=== PATIENT | female | born 1970 | race Caucasian/White ===

== ENCOUNTER 2019-03-04 21:46 | Emergency (ER) | payer OTHER ==
[~2019-03-04] VITALS: Ht 175.3 cm; Wt 99.8 kg
[~2019-03-04 21:46] MED LIST: AMOX1TAB61 PO; OFLO5DRO EACHEYE
[2019-03-04 22:29] LABS: BILIRUBIN,URINE NEGATIVE (NEG); CLARITY,URINE CLEAR; COLOR,URINE YELLOW; NITRITE,URINE NEGATIVE (NEG); PH,URINE 5.5; PROTEIN,URINE NEGATIVE (NEG-TRACE); UROBILINOGEN,URINE 0.2 mg/dL (0.2 mg/dL)
[2019-03-04] MEDS ORDERED: IV NORMAL SALINE 1000ML BAG 1,000 ML IV ONE (22:30)
[2019-03-04] MEDS ORDERED: KETOROLAC 15 MG/ML VIAL. IV ONE (22:30)
[2019-03-04] MEDS ORDERED: ONDANSETRON PF 4 MG/2 ML VIAL. IV ONE (22:30)
[2019-03-04 22:35] LABS: BACTERIA,URINE FEW /HPF (0-FEW); SQUAMOUS EPITHELIAL CELL,UR MOD /LPF; WBC,URINE OCC /HPF (0-4)
[2019-03-04 22:55] LABS: BASO # 0.1 x10^3/uL (0.0-0.2); BASO % 1 % (0-3); EOS # 0.2 x10^3/uL (0.0-0.7); EOS % 3 % (0-3); HEMATOCRIT 38.7 % (36.0-47.0); HEMOGLOBIN 13.2 g/dL (12.0-15.5); LYMPH # 1.8 x10^3/uL (1.0-4.8); LYMPH % 28 % (24-48); MEAN CORPUSCULAR HEMOGLOBIN 30 pg (25-35); MEAN CORPUSCULAR HGB CONC 34 g/dL (31-37); MEAN CORPUSCULAR VOLUME 88 fL (79-100); MONO # 0.6 x10^3/uL (0.0-1.1); MONO % 9 % (0-9); NEUT % 59 % (31-73); PLATELET COUNT 304 x10^3/uL (140-400); RED BLOOD COUNT 4.41 x10^6/uL (3.50-5.40); RED CELL DISTRIBUTION WIDTH 13.3 % (11.5-14.5); WHITE BLOOD COUNT 6.7 x10^3/uL (4.0-11.0)
[2019-03-04 23:22] LABS: CALCIUM 8.7 mg/dL (8.5-10.1); CREATININE 0.6 mg/dL (0.6-1.0); GFR 106.7; POTASSIUM 3.6 mmol/L (3.5-5.1)
[2019-03-04 23:28] LABS: ALBUMIN 3.2 g/dL (3.4-5.0); ALBUMIN/GLOBULIN RATIO 1.1 (1.0-1.7); TOTAL BILIRUBIN 0.4 mg/dL (0.2-1.0); TOTAL PROTEIN 6.1 g/dL (6.4-8.2)
[2019-03-04] MEDS ORDERED: ONDA4TAB12 PO (23:48)
[2019-03-04 23:59] VITALS: BP 119/72
--- NOTE | 2019-03-05 00:02 | PHYS DOC ---
Past Medical History Past Medical History: Anemia Past Surgical History: Cholecystectomy, Hysterectomy Alcohol Use: Occasionally Drug Use: None Adult General Chief Complaint Chief Complaint: NAUSEA/VOMITING/DIARRHA HPI HPI Patient is a 48 year old F P/W CC OF nausea vomiting and diarrhea greater than 10 episodes of each also feels some right flank pain. Flank is dull and sharp at times feel similar prior kidney infection she was worried about that nonbloody emesis nonbloody diarrhea no recent travel no antibiotics no sick contacts that she knows of she she's been feeling a little dizzy. Review of Systems Review of Systems Constitutional: Eyes: Denies change in visual acuity, redness, or eye pain [] HENT: Denies nasal congestion or sore throat [] Respiratory: Denies cough or shortness of breath [] Negative for dysuria Neurologic: Denies headache, focal weakness or sensory changes [] Endocrine: Denies polyuria or polydipsia [] All other systems were reviewed and found to be within normal limits, except as documented in this note. Current Medications Current Medications Current Medications Medications (Trade) Dose Ordered Sig/Fiorella Start Time Stop Time Status Last Admin Dose Admin Ketorolac Tromethamine (Toradol 15mg Vial) 15 mg 1X ONCE 03/04/19 22:30 03/04/19 22:31 DC 03/04/19 22:56 15 MG Ondansetron HCl (Zofran) 4 mg 1X ONCE 03/04/19 22:30 03/04/19 22:31 DC 03/04/19 22:55 4 MG Sodium Chloride 1,000 ml @ 1,000 mls/hr 1X ONCE 03/04/19 22:30 03/04/19 23:29 DC 03/04/19 22:55 1,000 MLS/HR Allergies Allergies Allergies Coded Allergies Type Severity Reaction Last Updated Verified morphine Allergy Severe seizures 06/10/14 Yes Physical Exam Physical Exam Constitutional: Well developed, well nourished, no acute distress, non-toxic appearance. [] HENT: Normocephalic, atraumatic, bilateral external ears normal, oropharynx moist, no oral exudates, nose normal. [] Eyes: PERRLA, EOMI, conjunctiva normal, no discharge. [] Neck: Normal range of motion, no tenderness, supple, no stridor. [] Cardiovascular:Heart rate regular rhythm, no murmur [] Lungs & Thorax: Bilateral breath sounds clear to auscultation [] Abdomen: Bowel sounds normal, soft, no tenderness, no masses, no pulsatile masses. [] Skin: Warm, dry, no erythema, no rash. [] Back: Mild right CVA tenderness Extremities: No tenderness, no cyanosis, no clubbing, ROM intact, no edema. [] Neurologic: Alert and oriented X 3, normal motor function, normal sensory function, no focal deficits noted. [] Psychologic: Affect normal, judgement normal, mood normal. [] Current Patient Data Vital Signs Vital Signs Date Time Temp Pulse Resp B/P (MAP) Pulse Ox O2 Delivery O2 Flow Rate FiO2 03/04/19 22:59 64 129/79 (96) 98 Room Air 03/04/19 21:55 97.6 18 97.6 Lab Values Laboratory Tests Test 03/04/19 21:50 03/04/19 22:46 03/04/19 23:05 Urine Collection Type Unknown Urine Color Yellow Urine Clarity Clear Urine pH 5.5 Urine Specific [place] 1.020 Urine Protein Negative mg/dL (NEG-TRACE) Urine Glucose (UA) Negative mg/dL (NEG) Urine Ketones (Stick) Negative mg/dL (NEG) Urine Blood Trace (NEG) Urine Nitrite Negative (NEG) Urine Bilirubin Negative (NEG) Urine Urobilinogen Dipstick 0.2 mg/dL (0.2 mg/dL) Urine Leukocyte Esterase Negative (NEG) Urine RBC 1-2 /HPF (0-2) Urine WBC Occ /HPF (0-4) Urine Squamous Epithelial Cells Mod /LPF Urine Bacteria Few /HPF (0-FEW) Urine Mucus Mod /LPF White Blood Count 6.7 x10^3/uL (4.0-11.0) Red Blood Count 4.41 x10^6/uL (3.50-5.40) Hemoglobin 13.2 g/dL (12.0-15.5) Hematocrit 38.7 % (36.0-47.0) Mean Corpuscular Volume 88 fL (79-100) Mean Corpuscular Hemoglobin 30 pg (25-35) Mean Corpuscular Hemoglobin Concent 34 g/dL (31-37) Red Cell Distribution Width 13.3 % (11.5-14.5) Platelet Count 304 x10^3/uL (140-400) Neutrophils (%) (Auto) 59 % (31-73) Lymphocytes (%) (Auto) 28 % (24-48) Monocytes (%) (Auto) 9 % (0-9) Eosinophils (%) (Auto) 3 % (0-3) Basophils (%) (Auto) 1 % (0-3) Neutrophils # (Auto) 4.0 x10^3/uL (1.8-7.7) Lymphocytes # (Auto) 1.8 x10^3/uL (1.0-4.8) Monocytes # (Auto) 0.6 x10^3/uL (0.0-1.1) Eosinophils # (Auto) 0.2 x10^3/uL (0.0-0.7) Basophils # (Auto) 0.1 x10^3/uL (0.0-0.2) Sodium Level 141 mmol/L (136-145) Potassium Level 3.6 mmol/L (3.5-5.1) Chloride Level 107 mmol/L (98-107) Carbon Dioxide Level 26 mmol/L (21-32) Anion Gap 8 (6-14) Blood Urea Nitrogen 9 mg/dL (7-20) Creatinine 0.6 mg/dL (0.6-1.0) Estimated GFR (Cockcroft-Gault) 106.7 BUN/Creatinine Ratio 15 (6-20) Glucose Level 105 mg/dL (70-99) H Calcium Level 8.7 mg/dL (8.5-10.1) Total Bilirubin 0.4 mg/dL (0.2-1.0) Aspartate Amino Transferase (AST) 12 U/L (15-37) L Alanine Aminotransferase (ALT) 15 U/L (14-59) Alkaline Phosphatase 60 U/L (46-116) Total Protein 6.1 g/dL (6.4-8.2) L Albumin 3.2 g/dL (3.4-5.0) L Albumin/Globulin Ratio 1.1 (1.0-1.7) Lipase 74 U/L (73-393) Laboratory Tests 03/04/19 22:46 Laboratory Tests 03/04/19 23:05 EKG EKG [] Radiology/Procedures Radiology/Procedures [] Course & Med Decision Making Course & Med Decision Making Pertinent Labs and Imaging studies reviewed. (See chart for details) []48-year-old female no previous past medical history she tells me presenting with 2 days ago of nausea vomiting and diarrhea. Nonbloody abdominal exam is benign and nontender she had some mild right flank area discomfort urinalysis was negative no dysuria vitals normal labs look good patient felt better after IV fluids and Zofran in the emergency room discharged in stable condition return precautions discussed in detail and she voiced understanding Leyda Disclaimer Leyda Disclaimer This electronic medical record was generated, in whole or in part, using a voice recognition dictation system. Departure Departure Impression: Primary Impression: Nausea vomiting and diarrhea Disposition: HOME, SELF-CARE Condition: STABLE Patient Instructions: Nausea and Vomiting, [id number] Scripts Ondansetron (ONDANSETRON ODT) 4 Mg Tab.rapdis 1 TAB PO PRN Q6-8HRS, #16 TAB Prov: CECILE SAUNDERS MD 03/04/19 CECILE SAUNDERS MD Mar 05, 2019 00:02
== END 2019-03-04 23:58 | disposition home or self-care (01) ==
LOC: ER 21:46
DX: R11.2 Nausea with vomiting, unspecified (principal); M54.9 Dorsalgia, unspecified; R19.7 Diarrhea, unspecified; Z90.49 Acquired absence of other specified parts of digestive tract; Z90.710 Acquired absence of both cervix and uterus; Z88.5 Allergy status to narcotic agent
CPT/HCPCS: 36415; 80053; 81001; 83690; 85025; 96361; 96374; 96375; 99284; J1885; J2405; J7030

== ENCOUNTER 2020-01-12 01:09 | Emergency (ER) | payer OTHER ==
[~2020-01-12] VITALS: Ht 175.3 cm; Wt 102.0 kg
[~2020-01-12 01:09] MED LIST changes: +ONDA4TAB12 PO
[2020-01-12 01:54] VITALS: BP 160/101
[2020-01-12] MEDS ORDERED: methylPREDNISolone SOD SUCC PF 125 MG/2 ML VIAL. IM ONE (02:00)
[2020-01-12] MEDS ORDERED: PRED50TA PO (02:05)
--- NOTE | 2020-01-12 02:06 | PHYS DOC ---
Past Medical History Past Medical History: Anemia Past Surgical History: Cholecystectomy, Hysterectomy Smoking Status: Never Smoker Alcohol Use: Occasionally Drug Use: None General Adult EDM: Chief Complaint: SKIN RASH/ABSCESS HPI: HPI: Patient is a 49 year old presents with complaint of rash primarily to her left arm that started 5 days ago. Patient states that rash is progressively getting worse and has numerous blisters that are popping. She states that it pryor and stings when touched. She states that she is starting to get a rash in other locations as well. Patient states that she had been trimming hedges before the rash erupted and wonders if it could be poison roslyn. [] Review of Systems: Review of Systems: Constitutional: Denies fever or chills. [] Respiratory: Denies cough or shortness of breath. [] Cardiovascular: Denies chest pain or edema. [] Integument: Positive rash. [] Neurologic: Denies headache, focal weakness or sensory changes. [] Heart Score: Risk Factors: Risk Factors: DM, Current or recent (<one month) smoker, HTN, HLP, family history of CAD, obesity. Risk Scores: Score 0 - 3: 2.5% MACE over next 6 weeks - Discharge Home Score 4 - 6: 20.3% MACE over next 6 weeks - Admit for Clinical Observation Score 7 - 10: 72.7% MACE over next 6 weeks - Early Invasive Strategies Allergies: Allergies: Allergies Coded Allergies Type Severity Reaction Last Updated Verified morphine Allergy Severe seizures 06/10/14 Yes Physical Exam: PE: Constitutional: Well developed, well nourished, no acute distress, non-toxic appearance. [] Cardiovascular: Regular rate and rhythm [] Lungs & Thorax: Bilateral breath sounds clear to auscultation [] Skin: There is a rash with numerous vesicles primarily on the inner aspect of the right arm, extending all the way down to the wrist. [] Neurologic: Alert and oriented X 3, no focal deficits noted. [] EKG: EKG: [] Radiology/Procedures: Radiology/Procedures: [] Course & Med Decision Making: Course & Med Decision Making Pertinent Labs and Imaging studies reviewed. (See chart for details) [] Dragon Disclaimer: Dragon Disclaimer: This electronic medical record was generated, in whole or in part, using a voice recognition dictation system. Departure Departure Impression: Primary Impression: Poison ros[place] Disposition: HOME, SELF-CARE Condition: STABLE Referrals: NO PCP (PCP) Patient Instructions: Poison [place] Scripts Prednisone (PREDNISONE) 50 Mg Tablet 1 TAB PO DAILY, #5 TAB Prov: AUBREY HARDEN Jr. DO 01/12/20 Justicifation of Admission Dx: Justifications for Admission: Justification of Admission Dx: N/A AUBREY HARDEN Jr. DO Jan 12, 2020 02:06
== END 2020-01-12 02:17 | disposition home or self-care (01) ==
LOC: ER 01:09
DX: L23.7 Allergic contact dermatitis due to plants, except food (principal); Z88.5 Allergy status to narcotic agent
CPT/HCPCS: 96372; 99283; J2930

== ENCOUNTER 2020-04-20 05:08 | Emergency (ER) | payer OTHER ==
[~2020-04-20] VITALS: Ht 175.3 cm; Wt 90.0 kg
[~2020-04-20 05:08] MED LIST changes: +PRED50TA PO
[2020-04-20] MEDS ORDERED: PRED50TA PO (05:44)
[2020-04-20] MEDS ORDERED: CEPH-264 PO (05:44)
[2020-04-20] MEDS ORDERED: HYDR25TA PO (05:44)
--- NOTE | 2020-04-20 05:45 | PHYS DOC ---
Past Medical History Past Medical History: Anemia Past Surgical History: Cholecystectomy, Hysterectomy Smoking Status: Never Smoker Alcohol Use: Occasionally Drug Use: None General Adult EDM: Chief Complaint: SKIN RASH/ABSCESS HPI: HPI: 49-year-old female who presents with a rash of the right upper extremity present for the last few days or so. The patient was trimming hedges on Saturday. On Saturday evening, she developed a erythematous pruritic rash of the right arm. She had a similar prior episode in January, also after trimming her hedges. Reports presence of small bullae as well. No fever, chills, nausea or vomiting. Review of Systems: Review of Systems: Gen: No fever, chills. CV: No CP, palpitations. Resp. No SOB, cough. GI: No abd pain, N/V. Neuro: No ROY, dizziness, weakness. MSK: No myalgia, arthralgia. Skin: Reports pruritic rash. Heart Score: Risk Factors: Risk Factors: DM, Current or recent (<one month) smoker, HTN, HLP, family history of CAD, obesity. Risk Scores: Score 0 - 3: 2.5% MACE over next 6 weeks - Discharge Home Score 4 - 6: 20.3% MACE over next 6 weeks - Admit for Clinical Observation Score 7 - 10: 72.7% MACE over next 6 weeks - Early Invasive Strategies Allergies: Allergies: Allergies Coded Allergies Type Severity Reaction Last Updated Verified morphine Allergy Severe seizures 06/10/14 Yes Physical Exam: PE: Gen: NAD. Well nourished. Head: NC/AT. Eyes: No scleral icterus. No conjunctival injection. ENT: MMM. Posterior OP clear. Neck: Supple. NT. No JVD. CV: RRR. Peripheral pulses intact. Resp: CTAB. MSK: No peripheral cyanosis. Erythematous pruritic rash of the right upper extremity, proximal and distal to the elbow, involving the lateral and radial aspects, though not circumferential with presence of small [id number] bullae. Neuro: A&Ox3. Strength & sensation grossly intact throughout. Skin. Warm. Dry. Psych: Appropriate mood & affect. Current Patient Data: Vital Signs: Vital Signs Date Time Temp Pulse Resp B/P (MAP) Pulse Ox O2 Delivery O2 Flow Rate FiO2 04/20/20 05:22 98.0 92 16 140/88 (105) 98 98.0 EKG: EKG: [] Radiology/Procedures: Radiology/Procedures: [] Course & Med Decision Making: Course & Med Decision Making Pertinent Labs and Imaging studies reviewed. (See chart for details) In summary, 49-year-old female who presents for evaluation of suspected contact dermatitis, possibly poison alisson. The lesions involve multiple dermatomes, not suspecting herpes zoster at this time. Will be given prednisone, as well as Keflex with concern for possibility of early developing bacterial superinfection. We discharged home with prescriptions for Keflex, prednisone, hydroxyzine for pruritus. Advised obtaining nwny-kfi-iesyonf hydrocortisone 1% cream as well. Return precautions given. Dragon Disclaimer: Dragon Disclaimer: This electronic medical record was generated, in whole or in part, using a voice recognition dictation system. Departure Departure Impression: Primary Impression: Contact dermatitis Disposition: 01 HOME, SELF-CARE Condition: STABLE Referrals: CHARU MITCHELL MD (PCP) Patient Instructions: Contact Dermatitis, Jczp-he-[id number] Scripts Hydroxyzine Hcl (HYDROXYZINE HCL) 25 Mg Tablet 1 TAB PO TID PRN for itching, #30 TAB Prov: ITZEL DOSHI DO 04/20/20 Prednisone (PREDNISONE) 50 Mg Tablet 1 TAB PO DAILY, #7 TAB Prov: ITZEL DOSHI DO 04/20/20 Cephalexin (KEFLEX) 500 Mg Capsule 1 CAP PO Q12HR, #14 CAP 0 Refills Prov: ITZEL DOSHI DO 04/20/20 Justicifation of Admission Dx: Justifications for Admission: Justification of Admission Dx: N/A ITZEL DOSHI DO Apr 20, 2020 05:45
[2020-04-20 06:00] VITALS: BP 161/98
[2020-04-20] MEDS ORDERED: predniSONE 20 MG TABLET PO ONE (06:00)
[2020-04-20] MEDS ORDERED: CEPHALEXIN 250 MG CAPSULE. PO SCH (06:00)
[2020-04-20] MEDS ORDERED: CEPHALEXIN 250 MG CAPSULE. PO ONE (06:15)
== END 2020-04-20 06:03 | disposition home or self-care (01) ==
LOC: ER 05:08
DX: L25.9 Unspecified contact dermatitis, unspecified cause (principal); R21 Rash and other nonspecific skin eruption; Z90.49 Acquired absence of other specified parts of digestive tract; Z90.710 Acquired absence of both cervix and uterus; Z88.6 Allergy status to analgesic agent
CPT/HCPCS: 99283; J7512

== ENCOUNTER 2020-04-22 08:52 | Emergency (ER) | payer OTHER ==
[~2020-04-22] VITALS: Ht 175.3 cm; Wt 90.9 kg
[~2020-04-22 08:52] MED LIST changes: +CEPH-264 PO; +HYDR25TA PO
[2020-04-22 08:57] VITALS: BP 128/92
[2020-04-22] MEDS ORDERED: PRED20TA PO (09:06)
[2020-04-22] MEDS ORDERED: DIPH103G TP (09:06)
--- NOTE | 2020-04-22 09:08 | PHYS DOC ---
Past Medical History Past Medical History: Anemia Past Surgical History: Cholecystectomy, Hysterectomy Smoking Status: Never Smoker Alcohol Use: Occasionally Drug Use: None General Adult EDM: Chief Complaint: SKIN PROBLEM HPI: HPI: Patient is a 49-year-old female who presents with chief complaint of right upper extremity rash with pruritus. She notes she was seen in our facility yesterday diagnosed with contact dermatitis presumed from poison alisson exposure. She notes that she was turning bushes yesterday and found poison alisson. She has been taking oral prednisone and Keflex. She also notes that she was prescribed hydroxyzine does not seem to be helping with the pruritus. Denies any purulent drainage. Denies fevers. No other complaints. Review of Systems: Review of Systems: Constitutional: Denies fever or chills. [] Eyes: Denies change in visual acuity. [] HENT: Denies nasal congestion or sore throat. [] Respiratory: Denies cough or shortness of breath. [] Cardiovascular: Denies chest pain or edema. [] GI: Denies abdominal pain, nausea, vomiting, bloody stools or diarrhea. [] : Denies dysuria. [] Musculoskeletal: Denies back pain or joint pain. [] Integument: Positive for rash Neurologic: Denies headache, focal weakness or sensory changes. [] Endocrine: Denies polyuria or polydipsia. [] Lymphatic: Denies swollen glands. [] Psychiatric: Denies depression or anxiety. [] Heart Score: Risk Factors: Risk Factors: DM, Current or recent (<one month) smoker, HTN, HLP, family history of CAD, obesity. Risk Scores: Score 0 - 3: 2.5% MACE over next 6 weeks - Discharge Home Score 4 - 6: 20.3% MACE over next 6 weeks - Admit for Clinical Observation Score 7 - 10: 72.7% MACE over next 6 weeks - Early Invasive Strategies Allergies: Allergies: Allergies Coded Allergies Type Severity Reaction Last Updated Verified morphine Allergy Severe seizures 06/10/14 Yes Physical Exam: PE: Constitutional: Well developed, well nourished, no acute distress, non-toxic jovi earance. [] HENT: Normocephalic, atraumatic, bilateral external ears normal, oropharynx moist, no oral exudates, nose normal. [] Eyes: PERRLA, EOMI, conjunctiva normal, no discharge. [] Neck: Normal range of motion, no tenderness, supple, no stridor. [] Cardiovascular:Heart rate regular rhythm, no murmur [] Lungs & Thorax: Bilateral breath sounds clear to auscultation [] Abdomen: Bowel sounds normal, soft, no tenderness, no masses, no pulsatile masses. [] Skin: Erythematous and clear blistering rash noted to the right upper extremity over the distal bicep laterally. Appears consistent with contact dermatitis. No surrounding induration or palpable areas of fluctuance. Back: No tenderness, no CVA tenderness. [] Extremities: No tenderness, no cyanosis, no clubbing, ROM intact, no edema. [] Neurologic: Alert and oriented X 3, normal motor function, normal sensory function, no focal deficits noted. [] Psychologic: Affect normal, judgement normal, mood normal. [] EKG: EKG: [] Radiology/Procedures: Radiology/Procedures: [] Course & Med Decision Making: Course & Med Decision Making Pertinent Labs and Imaging studies reviewed. (See chart for details) [] Patient is a 49-year-old female who presents with chief complaint of pruritic rash. She was seen in our facility yesterday and discharged home with Keflex, 7-day course of prednisone, and hydroxyzine. Given her continued symptoms she was given intramuscular Solu-Medrol. Her prednisone course were also be extended to a 21-day taper to prevent rebound symptoms. She also be prescribed topical Benadryl. She was instructed to follow-up with her primary care physician in the next 3 days. Return precautions discussed and understood. Stable for discharge home. Leyda Disclaimer: Leyda Disclaimer: This electronic medical record was generated, in whole or in part, using a voice recognition dictation system. Departure Departure Impression: Primary Impression: Contact dermatitis Qualified Codes: L24.7 - Irritant contact dermatitis due to plants, except food Disposition: 01 HOME, SELF-CARE Condition: STABLE Referrals: CHARU MITCHELL MD (PCP) Patient Instructions: Contact Dermatitis Additional Instructions: Please follow-up with your primary care physician in the next 3 days. You may purchase lsuj-yho-uryesrf Zanfel soap to apply over the rash daily. Scripts Diphenhydramine HCl (Benadryl Itch Stopping) 103 Ml Gel..ml. 1 JOVI TP TID PRN PRN for ITCHING for 10 Days, #103 ML 0 Refills Prov: LENA GARCIA DO 04/22/20 Prednisone (PREDNISONE) 20 Mg Tablet 10 MG PO DAILY for 21 Days, #42 TAB 60 mg x 4 days, 50 mg x 4 days, 40 mg x 4 days, 30 mg x 4 days, 20 mg x 4 days, 10 mg x 2 days. Total of 22 days Prov: LENA GARCIA DO 04/22/20 Justicifation of Admission Dx: Justifications for Admission: Justification of Admission Dx: N/A LENA GARCIA DO Apr 22, 2020 09:08
[2020-04-22] MEDS ORDERED: methylPREDNISolone SOD SUCC PF 125 MG/2 ML VIAL. IM ONE (09:15)
== END 2020-04-22 09:40 | disposition home or self-care (01) ==
LOC: ER 08:52
DX: L24.7 Irritant contact dermatitis due to plants, except food (principal); Z88.5 Allergy status to narcotic agent
CPT/HCPCS: 96372; 99283; J2930

== ENCOUNTER 2020-07-13 00:10 | Emergency (ER) | payer OTHER ==
[~2020-07-13] VITALS: Ht 175.3 cm; Wt 100.0 kg
[~2020-07-13 00:10] MED LIST changes: +DIPH103G TP; +PRED20TA PO
--- NOTE | 2020-07-13 00:29 | ED.ADGEN ---
Past Medical History Past Medical History: Anemia Past Surgical History: Cholecystectomy, Hysterectomy Smoking Status: Never Smoker Alcohol Use: Occasionally Drug Use: None General Adult EDM: Chief Complaint: CHEST PAIN HPI: HPI: Patient is a 49 year old female coming in with multiple complaints including fe noe, loss of smell and taste, anterior chest pain is worse with breathing, cough. Denies any vomiting or diarrhea. Has had 2 recent Covid exposures including her side and a coworker. Has not had a flu vaccine this year. Took Tylenol this morning. Symptoms been going on for about 3 days Review of Systems: Review of Systems: Constitutional: Fever Eyes: Denies change in visual acuity. [] HENT: Denies nasal congestion or sore throat. [] Respiratory: Cough and shortness of breath Cardiovascular: Chest pain GI: Denies abdominal pain, nausea, vomiting, bloody stools or diarrhea. [] : Denies dysuria. [] Musculoskeletal: Denies back pain or joint pain. [] Integument: Denies rash. [] Neurologic: Frontal headache without focal weakness or sensory changes. [] Endocrine: Denies polyuria or polydipsia. [] Lymphatic: Denies swollen glands. [] Psychiatric: Denies depression or anxiety. [] Current Medications: Current Medications Medications (Trade) Dose Ordered Sig/Fiorella Start Time Stop Time Status Last Admin Dose Admin Ketorolac Tromethamine (Toradol 15mg Vial) 15 mg 1X ONCE 07/13/20 01:00 07/13/20 01:01 DC 07/13/20 00:42 15 MG Sodium Chloride 1,000 ml @ 1,000 mls/hr 1X ONCE 07/13/20 01:00 07/13/20 01:59 07/13/20 00:42 1,000 MLS/HR Allergies: Allergies: Allergies Coded Allergies Type Severity Reaction Last Updated Verified morphine Allergy Severe seizures 06/10/14 Yes Physical Exam: PE: Constitutional: Well developed, well nourished, no acute distress, non-toxic appearance. [] HENT: Normocephalic, atraumatic, bilateral external ears normal, oropharynx moist, no oral exudates, nose normal. [] Eyes: PERRLA, EOMI, conjunctiva normal, no discharge. [] Neck: Normal range of motion, no tenderness, supple, no stridor. [] Cardiovascular:Heart rate regular rhythm, no murmur [] Lungs & Thorax: Bilateral breath sounds clear to auscultation [] Abdomen: Bowel sounds normal, soft, no tenderness, no masses, no pulsatile masses. [] Skin: Warm, dry, no erythema, no rash. [] Back: No tenderness, no CVA tenderness. [] Extremities: No tenderness, no cyanosis, no clubbing, ROM intact, no edema. [] Neurologic: Alert and oriented X 3, normal motor function, normal sensory function, no focal deficits noted. [] Psychologic: Affect normal, judgement normal, mood normal. [] Current Patient Data: Labs: Laboratory Tests Test 07/13/20 00:45 Influenza Type A Antigen Negative (NEGATIVE) Influenza Type B Antigen Negative (NEGATIVE) Vital Signs: Vital Signs Date Time Temp Pulse Resp B/P (MAP) Pulse Ox O2 Delivery O2 Flow Rate FiO2 07/13/20 00:10 99.6 89 13 128/76 (93) 97 Room Air 99.6 EKG: EKG: Sinus rhythm, heart rate 90 bpm, no ST elevation or depression, normal axis, T waves unremarkable, no ectopy [] Heart Score: HEART Score for Chest Pain: HEART Score for Chest Pain Response (Comments) Value History Slighlty/Non-Suspicious 0 ECG Normal 0 Age >45 - < 65 1 Risk Factors No Risk Factors 0 Total 1 Risk Factors: Risk Factors: DM, Current or recent (<one month) smoker, HTN, HLP, family his tory of CAD, obesity. Risk Scores: Score 0 - 3: 2.5% MACE over next 6 weeks - Discharge Home Score 4 - 6: 20.3% MACE over next 6 weeks - Admit for Clinical Observation Score 7 - 10: 72.7% MACE over next 6 weeks - Early Invasive Strategies Radiology/Procedures: Radiology/Procedures: CHEST AP ONLY History: Reason: cough, fever / Spl. Instructions: / History: Comparison: June 09, 2014 Findings: No consolidation or pleural effusion. Normal heart size. No pneumothorax. Impression: 1. No acute cardiopulmonary process. [] Course & Med Decision Making: Course & Med Decision Making Pertinent Labs and Imaging studies reviewed. (See chart for details) [] Dragon Disclaimer: Dragon Disclaimer: This electronic medical record was generated, in whole or in part, using a voice recognition dictation system. Departure Departure Impression: Primary Impression: Respiratory illness with fever Disposition: 01 DC HOME SELF CARE/HOMELESS Condition: STABLE Referrals: CHARU MITCHELL MD (PCP) Patient Instructions: Viral Syndrome Additional Instructions: You have been tested for or diagnosed with COVID-19. It is an infection caused by a new type of coronavirus. COVID-19 will cause cold-like or mild flu symptoms in most. It can cause more severe symptoms like problems breathing in some. There is no treatment for COVID-19. The body will clear the infection over time. Self-care will help to ease discomfort. Steps to Take: Self-Care Rest as needed. Healthy habits may help you feel better. Steps include: Choose healthy foods including fruits and vegetables. Drink water throughout the day. Get plenty of sleep each night. If you smoke, try to quit. It may ease breathing. Avoid alcohol. Keep Others Healthy The virus can spread to others. Droplets are released every time you sneeze or cough. The droplets can get into the mouth, nose, or eyes of people near you and lead to infection. To lower the chances of spreading COVID-19 to others: Stay at home until your doctor has said it is safe to leave. If you tested positive this will mean staying isolated until both of the following are true: At least 7 days have passed since the start of illness. You are free of fever for at least 72 hours without the use of medicine. During this time: - Avoid public areas, events, or transportation. Do not return to work or school until your doctor has said it is safe to do so. - Call ahead if you need to go to a medical center. Let them know you may have COVID-19. It will help them guide you where to go. They may also ask you to wear a facemask when you come to the office. - If you call for emergency medical services, let them know you may have COVID- 19. While at home: - Try to avoid close contact with others. Stay about 6 feet away. - If possible, spend most of your time in a separate room from others. - Use a face mask if you will be in close contact with others such as sharing a room or vehicle. - Have someone wipe down common surfaces in the home. Use household vice president of talent acquisition every day on areas like doorknobs, counters, or sinks. - Cough or sneeze into a tissue. Throw the tissue away right after use. If a tissue is not available, cough or sneeze into your elbow. - Wash your hands often. Wash them after sneezing or coughing. Use soap and water and wash for at least 20 seconds. Alcohol based hand vehicle and equipment cleaner can be used if soap and water is not available. - Do not prepare food for others. Avoid sharing personal items like forks, spoons, or toothbrushes. - Avoid close contact with pets while you are sick. There is no evidence of the virus passing to pets. This is a safety step until more is known about this virus. Isolation can be frustrating. Social interaction can help. Keep in touch with friends and family through phone and tech options. You can still interact with others in your home, just keep a safe distance of about 6 feet. Follow-up: Your doctors office will check in with you to see if there are any changes in your health. You may be asked to keep track of symptoms to share with them. They will also let you know when you are clear to be in public again. Problems to Look Out For: Contact your doctor if your recovery is not going as you expect. Get emergency care if you have problems such as: - Trouble breathing - Nonstop chest pain or pressure - Changes in awareness, confusion, or problems waking - Lips or face have bluish color - Worsening of symptoms If you think you have an emergency, call for emergency medical services right away. As taken from [facility] [place] KUMAR Vargas MD Jul 13, 2020 00:29
[2020-07-13] MEDS: KETOROLAC 15 MG/ML VIAL. IVP ONE (00:42)
[2020-07-13] MEDS: IV NORMAL SALINE 1000ML BAG 1,000 ML IV ONE (00:42)
[2020-07-13 01:16] LABS: INFLUENZA A PATIENT NEGATIVE (NEGATIVE); INFLUENZA B PATIENT NEGATIVE (NEGATIVE)
--- NOTE | 2020-07-13 01:27 | RAD ---
CHEST AP ONLY History: Reason: cough, fever / Spl. Instructions: / History: Comparison: June 09, 2014 Findings: No consolidation or pleural effusion. Normal heart size. No pneumothorax. Impression: 1. No acute cardiopulmonary process. Electronically signed by: Paco Pompa DO (07/13/2020 1:24 AM) [facility] [place]
[2020-07-13 01:43] VITALS: BP 118/72
== END 2020-07-13 01:49 | disposition home or self-care (01) ==
LOC: ER 00:10
DX: J98.9 Respiratory disorder, unspecified (principal); R50.9 Fever, unspecified; Z20.828 Contact with and (suspected) exposure to other viral communicable diseases; Z88.5 Allergy status to narcotic agent
CPT/HCPCS: 71045; 87804; 93005; 96361; 96374; 99285; C9803; J1885; J7030; U0003